=== PATIENT | female | born 1950 ===

== ENCOUNTER 2023-04-15 09:55 | Outpatient (AMB) | payer MEDICARE, OTHER, SELFPAY ==
--- NOTE | 2023-04-15 10:00 | MHC.OFFVIS ---
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 Pt reports insomnia, difficulty falling asleep and staying sleep. She had problem sleep for entire her life, however it has been worsened over the last 4 months which after she moved to [facility]. She lived a big house but move to [facility] after her children left house. Pt also reports that she was on seroquel, but she stopped taking it about 4 months ago. She slept a little bit more but wanted to off the medication. Pt smokes marijuana and it helps her fall asleep but she wakes up in 2-3 hrs and it is hard to go back to sleep. She has been smoking marijuana years. Pt had a sleep study, but it was inconclusive, she could not sleep with all the wires. She tried amitriptyline, trazodone, ambien, Lunesta, Belsomnara, melatonin, but nothing helpful. She currently is on doxepin 25 mg and gabapentin 600 mg qHS to promote sleep. Sleep questionnaire: Have you ever been diagnosed with a sleep disorder? Yes, insomnia. Have you ever had a sleep study in the past? Yes, but inconclusive. Have you ever been treated for a sleep disorder? Yes, with many different medications. Do you take medications for a sleep disorder? Yes, doxepin and gabapentin. Do you snore? No. Do you wake up gasping at night? No. Do you have episodes of apneas? No. If yes, are they witnessed? No. Do you have episodes of nocturnal chest pain or dyspnea? No. Do you have difficulty initiating sleep? Yes. Do you have difficulty maintaining sleep? Yes. Do you wake up tired? Yes. Do you have headaches upon awakening? No. Do you wake up with dry mouth or throat? No. Do you have GERD? No. Do you have nocturia? No. Do you have nocturnal leg cramps? No. Do you have symptoms of restless legs? No. Do you act out your dreams? No. Sleep hygiene questionnaire: What is your usual sleep routine? Usual bedtime is at 10:30-11 pm; Usual wake up time is at couple of hours later. Do you take naps? No. Is your sleep environment cool, dark, and quiet? Yes. Do you exercise? Yes, twice a week goes to gym and walking everyday. Do you take caffeine or other stimulants? One coffee in the morning. Do you use electronics in bed? Yes, watches TV. What is your work schedule? N/A. Hypersomnolence questionnaire: Do you have daytime tiredness or fatigue? Yes. Do you easily fall asleep when inactive? No. Have you ever had episodes of sudden weakness? No. Have you ever had episodes of sudden weakness associated with strong emotions? No. PFSH Family History (Updated 04/15/23 @ 10:06 by Katie Mackenzie CMA) Father Heart disease Social History (Updated 04/15/23 @ 10:07 by Katie Mackenzie CMA) Alcohol intake: former Patient Tobacco Use Status: Never used Tobacco Substance Use Type: Marijuana Review of Systems Const All systems reviewed & are unremarkable except as noted in HPI and below ENT Reports Normal hearing present Neuro Reports Normal hearing present Physical Exam Vital Signs: Last Vital Signs Pulse 56 04/15/23 10:07 BP 102/58 L 04/15/23 10:07 Pulse Ox 98 04/15/23 10:07 Oxygen Delivery Method Room Air 04/15/23 10:07 BMI result Body Mass Index 25.9 Const General: cooperative Nutritional Appearance: average body habitus Orientation/consciousness: patient oriented x3 Neck Neck: Yes full ROM and Yes supple Resp Effort & Inspection: normal respiratory effort and able to speak in complete sentences Neuro General: patient oriented x3 Cranial nerves: Yes Bilaterally intact EOM present, Yes Normal facial strength present, Yes Midline tongue present, Yes Symmetric palate elevation present, Yes Normal hearing present, Yes Ability to bilaterally rotate head present and Yes Ability to bilaterally elevate shoulders present Cognition (Neuro): normal cognition Motor exam (neuro): 5/5 motor strength present throughout and Pronator motor function not present Psych Appearance: grossly normal Mental Status: mental status grossly normal Speech and movement: Clear speech present Affect: normal affect Attitude: cooperative Assessment & Plan Assessment & Plan (1) Insomnia: Code(s): G47.00 - Insomnia, unspecified Plan Pt declined sleep study. Advised patient to practice sleep hygiene. Limit screen time before bedtime and reduce smoking marijuana. Long-term use marijuana can cause less sleep overall, longer time to fall asleep and frequent awakenings. Advised patient to read Say Good Night to Insomnia and practice the 6 week sleep hygiene program. Advised patient to try mirtazapine 7.5 mg and magnesium 400 mg qHS. Medications: New magnesium oxide 400 mg PO DAILY 30 days 30 tabs 3RF mirtazapine 7.5 mg PO BEDTIME 30 days 30 tabs 2RF Coding Level of Care Code New Pt Level 4 (90909) Diagnoses Insomnia G47.00
[2023-04-15 10:07] VITALS: BP 102/58; PULSE 56; O2SAT 98; BMI 25.9
== END 2023-04-15 10:51 | disposition home or self-care (01) ==
PROVIDERS: PCP Internal Medicine; Visit Provider Nurse Practitioner Family
DX: G47.00 Insomnia, unspecified (principal)
CPT/HCPCS: 99204

== ENCOUNTER → 2023-04-15 09:55 | Outpatient (BNVA) | payer MEDICARE, OTHER, SELFPAY | PROVIDERS: PCP Internal Medicine; Visit Provider Nurse Practitioner Family | DX: G47.00 Insomnia, unspecified (principal) | CPT/HCPCS: 99202 ==

== ENCOUNTER 2023-06-20 10:38 | Outpatient (AMB) | payer MEDICARE, OTHER, SELFPAY ==
--- NOTE | 2023-06-20 10:38 | A.OFFVIS_ITS ---
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 Pt's mirtazapine dosage was increased to 15 mg. However, she takes mirtazapine 30 mg nightly. She still having difficulty falling asleep and staying sleep. Pt states that she smoke marijuana and it helps her to fall asleep, but she only can sleep 3 hrs. She has been smoking marijuana years. She tried amitriptyline, trazodone, seroquel, ambien, Lunesta, Belsomnara, melatonin, but nothing helpful. She currently is on doxepin 25 mg and gabapentin 600 mg qHS to promote sleep. She goes to [facility] three times a week for yoga and exercise. She also tries to have routine sleep schedule. She sees her therapist once a week to manage anxiety. PFSH Family History (Updated 04/15/23 @ 10:06 by Katie Mackenzie CMA) Father Heart disease Social History (Updated 06/20/23 @ 10:42 by Katie Mackenzie CMA) Alcohol intake: former Patient Tobacco Use Status: Never used Tobacco Substance Use Type: Marijuana Review of Systems ENT Reports Normal hearing present Neuro Reports Normal hearing present Physical Exam Vital Signs: Last Vital Signs Pulse 63 06/20/23 10:42 BP 102/70 06/20/23 10:42 Pulse Ox 95 06/20/23 10:42 Oxygen Delivery Method Room Air 06/20/23 10:42 Const General: cooperative Nutritional Appearance: average body habitus Orientation/consciousness: patient oriented x3 Neck Neck: Yes full ROM and Yes supple Resp Effort & Inspection: normal respiratory effort and able to speak in complete sentences Neuro General: patient oriented x3 Cranial nerves: Yes Bilaterally intact EOM present, Yes Normal facial strength present, Yes Midline tongue present, Yes Symmetric palate elevation present, Yes Normal hearing present, Yes Ability to bilaterally rotate head present and Yes Ability to bilaterally elevate shoulders present Cognition (Neuro): normal cognition Motor exam (neuro): 5/5 motor strength present throughout and Pronator motor function not present Psych Appearance: grossly normal Mental Status: mental status grossly normal Speech and movement: Clear speech present Affect: normal affect Attitude: cooperative Assessment & Plan Assessment & Plan (1) Insomnia: Code(s): G47.00 - Insomnia, unspecified Plan Pt declined sleep study. Advised patient to continue to practice sleep hygiene. Limit screen time before bedtime and reduce smoking marijuana. Long-term use marijuana can cause less sleep overall, longer time to fall asleep and frequent awakenings. Advised patient to read Say Good Night to Insomnia and practice the 6 week sleep hygiene program. Advised patient to try mirtazapine 45 mg and magnesium 400 mg qHS. Advised patient to have cognitive behavior therapy for insomnia with her therapist, also refer patient to psychiatrist. Medications: New 2 mirtazapine 45 mg PO BEDTIME 30 days 30 tabs 0RF Discontinued mirtazapine Discontinued Reason: Doctor's Order 15 mg PO BEDTIME 30 days 30 tabs 3RF Coding Level of Care Code Est Pt Level 3 (84137) Diagnoses Insomnia G47.00
[2023-06-20 10:42] VITALS: BP 102/70; PULSE 63; O2SAT 95
== END 2023-06-20 11:05 | disposition home or self-care (01) ==
PROVIDERS: PCP Internal Medicine; Visit Provider Nurse Practitioner Family
DX: G47.00 Insomnia, unspecified (principal)
CPT/HCPCS: 99213

== ENCOUNTER → 2023-06-20 10:38 | Outpatient (BNVA) | payer MEDICARE, OTHER, SELFPAY | PROVIDERS: PCP Internal Medicine; Visit Provider Nurse Practitioner Family | DX: G47.00 Insomnia, unspecified (principal) | CPT/HCPCS: 99212 ==

== ENCOUNTER 2023-12-19 12:50 | Outpatient (AMB) | payer MEDICARE, OTHER, SELFPAY ==
--- NOTE | 2023-12-19 12:52 | A.OFFVIS_ITS ---
Vital Signs 12/19/23 13:01 Height 4 ft 11.5 in BP 112/70 Blood Pressure Location Rt brachial Position Sitting Pulse 62 Pulse Source Pulse Oximeter Pulse Oximetry (%) 93 Oxygen Delivery Method Room Air Intake Visit Reasons: Hot flashes Intake Note: Patient presents for hot flashes. Pt. refuses to take weight. Allergies No Known Allergies Allergy (Verified 12/19/23 12:58) HPI Comments Details: 73 y/o female patient presents for follow up of insomnia. Pt reports she sees psychologist for CBTi. She goes to once a week for CBTi. and it seemed helpful for her sleep better. Pt states that she smoke marijuana, Indica and it helps her to fall asleep, can sleep 4 or more hrs. She also takes Belsomna 20 mg q qHS. She has been having hot flashes long time, it mostly bothers her sleep. She tried amitriptyline, trazodone, seroquel, ambien, Lunesta, melatonin, but nothing helpful. Pt reports she stopped taking doxepin 25 mg and gabapentin 600 mg qHS. She goes to [employer] three times a week for yoga and exercise. She also tries to have routine sleep schedule. She sees her therapist once a week to manage anxiety. PFSH Family History Father Heart disease Social History Alcohol intake: former Patient Tobacco Use Status: Never used Tobacco Substance Use Type: Marijuana Review of Systems Const All systems reviewed & are unremarkable except as noted in HPI and below ENT Reports Normal hearing present Neuro Reports Normal hearing present Physical Exam Vital Signs: Last Vital Signs Pulse 62 12/19/23 13:01 BP 112/70 12/19/23 13:01 Pulse Ox 93 12/19/23 13:01 Oxygen Delivery Method Room Air 12/19/23 13:01 Const General: cooperative Nutritional Appearance: average body habitus Orientation/consciousness: patient oriented x3 Neck Neck: Yes full ROM and Yes supple Resp Effort & Inspection: normal respiratory effort and able to speak in complete sentences Neuro General: patient oriented x3 Cranial nerves: Yes Bilaterally intact EOM present, Yes Normal facial strength present, Yes Midline tongue present, Yes Symmetric palate elevation present, Yes Normal hearing present, Yes Ability to bilaterally rotate head present and Yes Ability to bilaterally elevate shoulders present Cognition (Neuro): normal cognition Motor exam (neuro): 5/5 motor strength present throughout and Pronator motor function not present Psych Appearance: grossly normal Mental Status: mental status grossly normal Speech and movement: Clear speech present Affect: normal affect Attitude: cooperative Assessment & Plan Assessment & Plan (1) Insomnia: Code(s): G47.00 - Insomnia, unspecified Category: Medical Plan Advised patient to continue to practice sleep hygiene and CBTi. Continue to take Belsomra 20 mg qHS. May try cooling mattress topper and uses cotton pajamas to manage hot flashes. Coding Level of Care Code Est Pt Level 3 (59925) Diagnoses Insomnia G47.00
[2023-12-19 13:01] VITALS: BP 112/70; PULSE 62; O2SAT 93
== END 2023-12-19 14:08 | disposition home or self-care (01) ==
PROVIDERS: PCP Internal Medicine; Visit Provider Nurse Practitioner Family
DX: G47.00 Insomnia, unspecified (principal)
CPT/HCPCS: 99213

== ENCOUNTER → 2023-12-19 12:50 | Outpatient (BNVA) | payer MEDICARE, OTHER, SELFPAY | PROVIDERS: PCP Internal Medicine; Visit Provider Nurse Practitioner Family | DX: G47.00 Insomnia, unspecified (principal); N95.1 Menopausal and female climacteric states | CPT/HCPCS: 99212 ==

== ENCOUNTER 2024-07-26 15:04 | Outpatient (AMB) | payer OTHER, SELFPAY ==
--- NOTE | 2024-07-26 15:18 | A.OFFVIS_ITS ---
Vital Signs 07/26/24 15:23 Height 4 ft 11.5 in Intake Visit Reasons: Follow up Intake Note: Patient presents for follow up Allergies No Known Allergies Allergy (Verified 07/26/24 15:22) Medication List - Last Reconciled 07/26/24 by Rocío Ba MD alendronate 70 mg PO QWEEK atorvastatin mg PO levothyroxine mcg PO magnesium oxide 400 mg PO DAILY 30 days primidone 100 mg PO BID venlafaxine ER 37.5 mg PO BID HPI Comments Details: 73 y/o female patient presents for follow up of insomnia.she says she has not slept for 9 days.she does not take daytime naps. she is tired during daytime she also has essential tremors and is on primidone 100mg bid Pt reports she sees psychologist for CBTi. She goes to once a week for CBTi. and it seemed helpful for her sleep better. Pt states that she smoke marijuana, Indica and it helps her to fall asleep, can sleep 4 or more hrs. she was on belsomra She tried amitriptyline, trazodone, seroquel, ambien, Lunesta, melatonin, but nothing helpful. Pt reports she stopped taking doxepin 25 mg and gabapentin 600 mg qHS. She goes to [facility] three times a week for yoga and exercise. She also tries to have routine sleep schedule. She sees her therapist once a week to manage anxiety. [facility] Medical History (Updated 07/26/24 @ 15:42 by Rocío Ba MD) Sleep state misperception Essential and other specified forms of tremor Anxiety Family History Father Heart disease Social History Alcohol intake: former Patient Tobacco Use Status: Never used Tobacco Substance Use Type: Marijuana Review of Systems ENT Reports Normal hearing present Neuro Reports Normal hearing present Physical Exam Const General: cooperative Nutritional Appearance: average body habitus Orientation/consciousness: patient oriented x3 Neck Neck: Yes full ROM and Yes supple Resp Effort & Inspection: normal respiratory effort and able to speak in complete sentences Neuro General: patient oriented x3 Cranial nerves: Yes Bilaterally intact EOM present, Yes Normal facial strength present, Yes Midline tongue present, Yes Symmetric palate elevation present, Yes Normal hearing present, Yes Ability to bilaterally rotate head present and Yes Ability to bilaterally elevate shoulders present Cognition (Neuro): normal cognition Motor exam (neuro): 5/5 motor strength present throughout and Pronator motor function not present Psych Appearance: grossly normal Mental Status: mental status grossly normal Speech and movement: Clear speech present Affect: normal affect Attitude: cooperative Assessment & Plan Assessment & Plan (1) Insomnia: Comment: sleep state misperception Code(s): G47.00 - Insomnia, unspecified Category: Medical Qualifiers: Insomnia type: due to other mental disorder Qualified Code(s): F51.05 - Insomnia due to other mental disorder; F99 - Mental disorder, not otherwise specified (2) Sleep state misperception: Code(s): F51.02 - Adjustment insomnia Category: Medical Plan Advised patient to continue to practice sleep hygiene and CBTi. she likely has sleep state misperception - she said she did not sleep for past 9 days but able to function normally . she does 3 exercise classes per week and walks when weather is good. she wants to retry lunesta 1mg qhs Suggested in lab sleep study for sleep state misperception but she declined. May try cooling mattress topper and uses cotton pajamas to manage hot flashes. Medications: New eszopiclone 1 mg PO BEDTIME 30 tabs 3RF Coding Level of Care Code Est Pt Level 4 (12468) Complex EM visit Add On G2211 Diagnoses Insomnia due to other mental disorder F51.05; F99 Insomnia type: due to other mental disorder Sleep state misperception F51.02
--- OUTSIDE RECORDS SUMMARY | 2024-08-01 04:15 | XMS_ITS | Continuity of Care Document ---
Author Organization [facility] Address [address] [place] [address] [address] [place] [id number] Phone Care Team Providers Care Colon Therapist Name Role Phone Abilio HAQUE FACS RVT JASPREET, Diana Romano Unavailable Unavailable Medications Medication Instructions Dosage Effective Dates (start - stop) Status Comments atorvastatin 20 mg tablet - Active primidone 50 mg tablet - Act luis Procedures Procedure Date No Charge For Services Advance Directives Directive Yes / No Effective Date File Name No Information Encounters Encounter Description Practice Location Reason(s) For Visit Diagnoses Date Provider Providers Copied on Encounter [facility], [address] [place] [address] [address], [place], [id number], tel:[phone] [facility] - [facility] Venous insufficiency (chronic) (peripheral)Sp ider Veins - (Telangiectasi a) 3 Abilio HAQUE FACS RVT CLARITA Romano. [address], [address], [place]. tel:[phone] Referring Provider: Diana Knox MD FACS RVT RP, [address], [address]. tel:[phone] Family History Family Member Type Diagnosis Age At Onset No Information Payers Payer name Insurance type Covered constitution party ID Authoriza tion(s) Self Pay 09 Social History Type Description Quantity Date Captured Comments Alcohol Use Details No Caffeine Use Details Unknown Tobacco Use Status Current non-smoker 24 Smoking Status Never smoker Non-Smoking Tobacco Use Details : No Details Available : No Details Available Sex Female Chief Complaint And Reason For Visit No Information Reason For Referral Reason For Referral No Information Plan Of Treatment Date Type Action Status Goal Tobacco cessation counseling completed History Of Present Illness Encounter Date Complaint History Of Prese nt Illness No Information Functional Status Date Functional Assessmen t No Information Instructions Date Instruction Additional Infor mation No Information Assessments Type Assessment Date assessment Venous insufficiency (chronic) ( peripheral) assessment Spider Veins - (Telangiectasia) Patient Care Teams Name Effective Dates (start - stop) Status Members No Information
== END 2024-07-26 15:41 | disposition home or self-care (01) ==
PROVIDERS: PCP Internal Medicine; Visit Provider Psychiatry & Neurology Neurology
DX: F51.05 Insomnia due to other mental disorder (principal); F99 Mental disorder, not otherwise specified; F51.02 Adjustment insomnia
CPT/HCPCS: 99214; G2211

== ENCOUNTER → 2024-07-26 15:04 | Outpatient (BNVA) | payer MEDICARE, OTHER, SELFPAY | PROVIDERS: PCP Internal Medicine; Visit Provider Psychiatry & Neurology Neurology | DX: F51.05 Insomnia due to other mental disorder (principal); F51.02 Adjustment insomnia | CPT/HCPCS: 99212 ==

== ENCOUNTER 2025-01-28 11:28 | Outpatient (AMB) | payer MEDICARE, OTHER, SELFPAY ==
[2025-01-28 11:30] VITALS: BP 114/74; BMI 27.3
--- NOTE | 2025-01-28 11:30 | A.OFFVIS_ITS ---
Vital Signs 01/28/25 11:30 Height 4 ft 11 in Weight 135 lb BMI 27.3 BP 114/74 Blood Pressure Location Rt brachial Position Sitting Intake Visit Reasons: Follow up Intake Note: Patient presents for follow up med trial eszopiclone Allergies No Known Allergies Allergy (Verified 01/28/25 11:33) HPI Comments Details: 74 y/o female patient presents for follow up of insomnia.she is doing better.. she is seeing Dr. Luci Marvin at [facility] and she tried her on mirtazpine 30mg qhs and she feels it does not help so she stopped. she sees Dr. 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 she sleeps 4 days a week- 6-7 hrs . she does not sleep on other days.she power snot take naps during daytime. History from last visit-she says she has not slept for 9 days.she does not take daytime naps. she is tired during daytime she also has essential tremors and is on primidone 100mg bid Pt reports she sees psychologist for CBTi. She goes to once a week for CBTi. and it seemed helpful for her sleep better. Pt states that she smoke marijuana, Indica and it helps her to fall asleep, can sleep 4 or more hrs. she was on belsomra She tried amitriptyline, trazodone, seroquel, ambien, Lunesta, melatonin, but nothing helpful. Pt reports she stopped taking doxepin 25 mg and gabapentin 600 mg qHS. She goes to [facility] three times a week for yoga and exercise. She also tries to have routine sleep schedule. She sees her therapist once a week to manage anxiety. [facility] Medical History Sleep state misperception Essential and other specified forms of tremor Anxiety Family History Father Heart disease Social History Alcohol intake: former Patient Tobacco Use Status: Never used Tobacco Substance Use Type: Marijuana Review of Systems ENT Reports Normal hearing present Neuro Reports Normal hearing present Physical Exam Vital Signs: Last Vital Signs BP 114/74 01/28/25 11:30 BMI result Body Mass Index 27.3 Const General: cooperative Nutritional Appearance: average body habitus Orientation/consciousness: patient oriented x3 Neck Neck: Yes full ROM and Yes supple Resp Effort & Inspection: normal respiratory effort and able to speak in complete sentences Neuro Other: Looks rested and relaxed - slept 4 hrs last night General: patient oriented x3 Cranial nerves: Yes Bilaterally intact EOM present, Yes Normal facial strength present, Yes Midline tongue present, Yes Symmetric palate elevation present, Yes Normal hearing present, Yes Ability to bilaterally rotate head present and Yes Ability to bilaterally elevate shoulders present Cognition (Neuro): normal cognition Motor exam (neuro): 5/5 motor strength present throughout and Pronator motor function not present Psych Appearance: grossly normal Mental Status: mental status grossly normal Speech and movement: Clear speech present Affect: normal affect Attitude: cooperative Assessment & Plan Assessment & Plan (1) Insomnia: Comment: sleep state misperception Code(s): G47.00 - Insomnia, unspecified Category: Medical Qualifiers: Insomnia type: due to other mental disorder Qualified Code(s): F51.05 - Insomnia due to other mental disorder; F99 - Mental disorder, not otherwise specified (2) Sleep state misperception: Code(s): F51.02 - Adjustment insomnia Category: Medical Plan Advised patient to continue to practice sleep hygiene and CBTi. she likely has sleep state misperception she does 3 exercise classes per week and walks when weather is good. Suggested in lab sleep study for sleep state misperception but she declined. May try cooling mattress topper and uses cotton pajamas to manage hot flashes. Coding Level of Care Code Est Pt Level 4 (90233) Diagnoses Insomnia due to other mental disorder F51.05; F99 Insomnia type: due to other mental disorder Sleep state misperception F51.02
== END 2025-01-28 12:15 | disposition home or self-care (01) ==
LOC: HO.HSMS 11:29
PROVIDERS: PCP Internal Medicine; Visit Provider Psychiatry & Neurology Neurology
DX: F51.05 Insomnia due to other mental disorder (principal); F99 Mental disorder, not otherwise specified; F51.02 Adjustment insomnia
CPT/HCPCS: 99214

== ENCOUNTER → 2025-01-28 11:28 | Outpatient (BNVA) | payer MEDICARE, OTHER, SELFPAY | PROVIDERS: PCP Internal Medicine; Visit Provider Psychiatry & Neurology Neurology | DX: F51.05 Insomnia due to other mental disorder (principal); G25.0 Essential tremor; F51.02 Adjustment insomnia; F41.9 Anxiety disorder, unspecified | CPT/HCPCS: 99212 ==